=== PATIENT | female | born 1945 | race Caucasian/White ===

== ENCOUNTER 2016-06-23 19:53 | Emergency (ER) | payer MEDICARE, SELFPAY ==
[~2016-06-23 19:53] MED LIST: ASPIR-LOW81 MG PO; BACTRIM D.S. TAB1 EA PO; COLACE 100MG C100 MG PO; K-DUR TAB 10 M10 MEQ PO; LASIX 40 MG TAB40 MG PO; LIPITOR TAB 2020 MG PO; LISINOPRIL2.5 MG PO; LYSINE500 MG PO; METOPROLOL TART25 MG PO; MIRALAX PACK 171 PKT PO; NITROSTAT 0.40.4 MG SL; NORVASC 5 MG TAB5 MG PO; SENOKOT-S TABL1 EACH PO; TRAMADOL HCL50 MG PO; VITAMIN B-12500 MCG PO; VITAMIN D32000 UNIT PO
[2016-06-23 21:22] LABS: HEMOGLOBIN 13.4 gm/dl (12.3-15.3); RED BLOOD COUNT 4.36 M/UL (4.00-5.10); WHITE BLOOD COUNT 6.9 K/UL (4.5-11.0)
[2016-06-23 21:38] LABS: BUN/CREATININE RATIO 18 (0-10)
[2016-07-19] MEDS ORDERED: NORVASC5 MG PO (09:37)
[2016-07-19] MEDS ORDERED: ZESTRIL/PRINIVI10 MG PO (09:38)
[2016-07-19] MEDS ORDERED: MULTI-DAY VITA1 EACH PO (09:38)
[2016-07-19] MEDS ORDERED: NORCO 10-325 T1 EACH PO (12:55)
[2016-11-01] MEDS ORDERED: VITAMIN E400 UNI2 PO (08:48)
[2016-11-01] MEDS ORDERED: PRIMROSE OIL PO (08:51)
[2016-11-03] MEDS ORDERED: PERCOCET 10-321 EACH PO (12:17)
== END 2016-06-24 00:26 | disposition home or self-care (01) ==
LOC: ER1 19:53
PROVIDERS: Emergency Medicine
DX: R51 Headache (principal); I10 Essential (primary) hypertension; I25.810 Atherosclerosis of coronary artery bypass graft(s) without angina pectoris; Z95.1 Presence of aortocoronary bypass graft; Z95.5 Presence of coronary angioplasty implant and graft
CPT/HCPCS: 36415; 70450; 80053; 84484; 85025; 85610; 85730; 86140; 87040; 96374; 96375; 99284; J2270; J2405

== ENCOUNTER → 2016-07-11 | Outpatient (CLI) | payer MEDICARE, SELFPAY ==
[~2016-07-11] MED LIST changes: +MULTI-DAY VITA1 EACH PO; +NORCO 10-325 T1 EACH PO; +NORVASC5 MG PO; +PERCOCET 10-321 EACH PO; +PRIMROSE OIL PO; +VITAMIN E400 UNI2 PO; +ZESTRIL/PRINIVI10 MG PO
[2016-07-11 13:02] LABS: HEMOGLOBIN 13.1 gm/dl (12.3-15.3); RED BLOOD COUNT 4.19 M/UL (4.00-5.10)
[2016-07-11 13:15] LABS: BUN/CREATININE RATIO 17 (0-10)
== END ==
LOC: OPSV2 12:25
PROVIDERS: Orthopaedic Surgery
DX: Z01.810 Encounter for preprocedural cardiovascular examination (principal); Z01.812 Encounter for preprocedural laboratory examination; M65.311 Trigger thumb, right thumb
CPT/HCPCS: 36415; 80048; 85025; 93005

== ENCOUNTER → 2016-07-16 | Outpatient (CLI) | payer MEDICARE, OTHER ==
[2016-07-16 13:02] LABS: BUN/CREATININE RATIO 18 (0-10)
== END ==
LOC: LAB 11:52
PROVIDERS: Internal Medicine
DX: I10 Essential (primary) hypertension (principal)
CPT/HCPCS: 36415; 80048

== ENCOUNTER → 2016-07-19 | Day surgery (SDC) | payer MEDICARE, SELFPAY ==
[~2016-07-19] VITALS: Ht 157.5 cm; Wt 64.4 kg
== END | disposition home or self-care (01) ==
LOC: OR 08:40
PROVIDERS: Orthopaedic Surgery
PROC: 0LN70ZZ Release Right Hand Tendon, Open Approach (ICD-10-PCS; principal; 2016-07-19 11:15)
DX: M65.311 Trigger thumb, right thumb (principal); I10 Essential (primary) hypertension; I25.2 Old myocardial infarction; I25.10 Atherosclerotic heart disease of native coronary artery without angina pectoris; M16.11 Unilateral primary osteoarthritis, right hip; M81.0 Age-related osteoporosis without current pathological fracture; Z82.49 Family history of ischemic heart disease and other diseases of the circulatory system; Z83.3 Family history of diabetes mellitus; Z82.0 Family history of epilepsy and other diseases of the nervous system; Z88.8 Allergy status to other drugs, medicaments and biological substances; Z79.82 Long term (current) use of aspirin; Z79.899 Other long term (current) drug therapy; Z95.1 Presence of aortocoronary bypass graft; Z98.41 Cataract extraction status, right eye; Z98.42 Cataract extraction status, left eye; Z98.890 Other specified postprocedural states
CPT/HCPCS: J2250; J3010; J7030; J7120

== ENCOUNTER → 2016-09-12 | Outpatient (CLI) | payer MEDICARE | LOC: EXRD 09-11 14:00 | DX: Z13.820 Encounter for screening for osteoporosis (principal); M85.88 Other specified disorders of bone density and structure, other site | CPT/HCPCS: 77080 ==

== ENCOUNTER → 2016-09-26 | Outpatient (CLI) | payer MEDICARE | LOC: HEART 5 08:17 | DX: R07.9 Chest pain, unspecified (principal); I49.3 Ventricular premature depolarization ==

== ENCOUNTER → 2016-10-25 | Outpatient (CLI) | payer MEDICARE ==
[2016-10-25 10:57] LABS: HEMOGLOBIN 13.6 gm/dl (12.3-15.3); RED BLOOD COUNT 4.29 M/UL (4.00-5.10); WHITE BLOOD COUNT 5.7 K/UL (4.5-11.0)
[2016-10-25 11:17] LABS: BUN/CREATININE RATIO 19 (0-10)
== END ==
LOC: OPSV2 10:00
PROVIDERS: Orthopaedic Surgery
DX: Z01.810 Encounter for preprocedural cardiovascular examination (principal); Z01.812 Encounter for preprocedural laboratory examination; M75.101 Unspecified rotator cuff tear or rupture of right shoulder, not specified as traumatic
CPT/HCPCS: 36415; 80048; 81001; 85025; 87081; 93005

== ENCOUNTER 2021-04-19 11:31 | Emergency (ER) | payer OTHER, SELFPAY ==
[~2021-04-19] VITALS: Ht 157.5 cm; Wt 66.7 kg
[~2021-04-19 11:31] MED LIST changes: +PREDNISONE20 MG PO
[2021-04-19 13:24] LABS: HEMOGLOBIN 13.7 gm/dl (12.3-15.3); RED BLOOD COUNT 4.25 M/UL (4.00-5.10)
[2021-04-19 13:50] LABS: BUN/CREATININE RATIO 16 (0-10)
== END 2021-04-19 16:35 | disposition home or self-care (01) ==
LOC: ER1 11:31
PROVIDERS: Nurse Practitioner
DX: U07.1 COVID-19 (principal); I11.9 Hypertensive heart disease without heart failure; E78.5 Hyperlipidemia, unspecified
CPT/HCPCS: 36600; 71045; 80048; 82550; 82553; 82803; 83874; 84484; 85025; 85652; 86140; 93005; 99285

== ENCOUNTER 2021-04-22 03:48 | Emergency (ER) | payer OTHER ==
[2021-04-22 05:13] LABS: HEMOGLOBIN 13.4 gm/dl (12.3-15.3); RED BLOOD COUNT 4.17 M/UL (4.00-5.10); WHITE BLOOD COUNT 7.1 K/UL (4.5-11.0)
[2021-04-22 05:43] LABS: BUN/CREATININE RATIO 25 (0-10)
[2021-04-22] MEDS ORDERED: DECADRON4 MG PO (06:16)
[2021-04-22] MEDS ORDERED: ZITHROMAX250 MG PO (06:16)
[2021-04-22] MEDS ORDERED: SYMBICORT 80-10.2 GM INH (06:18)
== END 2021-04-22 06:50 | disposition home or self-care (01) ==
LOC: ER1 03:48
PROVIDERS: Family Medicine
DX: U07.1 COVID-19 (principal); I11.9 Hypertensive heart disease without heart failure
CPT/HCPCS: 71045; 80053; 82550; 82553; 83874; 84484; 85025; 93005; 94664; 99284